=== PATIENT | male | born 1995 | race Caucasian/White ===

== ENCOUNTER 2019-04-04 22:40 | Emergency (ER) | payer BC ==
[2019-04-04] MEDS ORDERED: IV NS 0.9% 1,000 ML BAG IV ONE (23:00)
[2019-04-05] MEDS ORDERED: IV NS 0.9% 1,000 ML BAG IV ONE (00:30)
== END 2019-04-05 08:45 | disposition home or self-care (01) ==
DX: F19.10 Other psychoactive substance abuse, uncomplicated (principal); R55 Syncope and collapse; F12.10 Cannabis abuse, uncomplicated
CPT/HCPCS: 36415; 80048; 80076; 80305; 80307; 80329; 81001; 85025; 93005; 96360; 96361; 99284; G0480; J7030 ×2